=== PATIENT | female | born 1955 | race Caucasian/White ===

== ENCOUNTER 2023-01-01 11:08 | Emergency (ER) | payer MEDICARE, SELFPAY ==
--- NOTE | 2023-01-01 11:22 | ED_ITS ---
HPI - General Adult General Chief complaint: Urogenital-Female <ELLE Alcaraz - Last Filed: 01/01/23 14:03> Stated complaint: UTI? <ELLE Alcaraz - Last Filed: 01/01/23 14:03> Time Seen by Provider: 01/01/23 11:46 <ELLE Alcaraz - Last Filed: 01/01/23 14:03> Source: patient <ELLE Lebron - Last Filed: 01/01/23 13:34> Mode of arrival: ambulatory <ELLE Lebron - Last Filed: 01/01/23 13:34> Limitations: no limitations <ELLE Lebron - Last Filed: 01/01/23 13:34> History of Present Illness HPI narrative: 67-year-old female presents to the ER for evaluation of 1.5 weeks of burning upon urination, bladder pains, intermittent episodes of blood tinged urine. She states she has frequent UTIs. She developed nausea today. No vomiting or fevers. No vaginal discharge, vaginal bleeding or itching. She feels her bladder spasming and reports it is very painful. She has never seen a Urologist before. <ELLE Lebron - Last Filed: 01/01/23 13:34> MD complaint: dysuria <ELLE Lebron - Last Filed: 01/01/23 13:34> Onset (ago): week(s) (1.5-2) <ELLE Lebron - Last Filed: 01/01/23 13:34> Location: genitals <ELLE Lebron - Last Filed: 01/01/23 13:34> Radiation: non-radiation <ELLE Lebron - Last Filed: 01/01/23 13:34> Severity: severe <ELLE Lebron - Last Filed: 01/01/23 13:34> Severity scale (1-10): 8 <ELLE Lebron - Last Filed: 01/01/23 13:34> Quality: burning <ELLE Lebron - Last Filed: 01/01/23 13:34> Pain Consistency: constant <ELLE Lebron - Last Filed: 01/01/23 13:34> Relieving factors: none <ELLE Lebron - Last Filed: 01/01/23 13:34> Exacerbating factors: other (urination) <ELLE Lebron - Last Filed: 01/01/23 13:34> Associated symptoms: nausea/vomiting <ELLE Lebron - Last Filed: 01/01/23 13:34> Treatments prior to arrival: none <ELLE Lebron - Last Filed: 01/01/23 13:34> Related Data Home medications: Previous Rx's Medication Instructions Recorded levofloxacin 500 mg tablet 500 mg PO DAILY #6 tabs 01/01/23 phenazopyridine 100 mg tablet 100 mg PO TID PRN pain 6 doses #6 01/01/23 (Pyridium) tabs <ELLE Alcaraz - Last Filed: 01/01/23 14:03> Allergies/adverse reactions: Allergies Allergy/AdvReac Type Severity Reaction Status Date / Time Penicillins Allergy Anaphylaxis Verified 01/01/23 11:23 <ELLE Alcaraz - Last Filed: 01/01/23 14:03> Review of Systems Review of Systems: Yes all other systems are reviewed and are negative <ELLE Lebron - Last Filed: 01/01/23 13:34> PMF Past Medical History Medical History: Medical History (Updated 01/01/23 @ 13:25 by ELLE Lebron) ACL (anterior cruciate ligament) tear <ELLE Alcaraz - Last Filed: 01/01/23 14:03> Surgical History: Surgical History (Updated 01/01/23 @ 12:06 by Claire Terry) History of delivery <ELLE Alcaraz - Last Filed: 01/01/23 14:03> Social History Social History: Social History Alcohol intake: never Smoked in Last 30 Days: No Use of substances other than those prescribed or required for medical reasons: No Advance Directives: No Advance Directives Information Provided: Yes Patient : No <ELLE Alcaraz - Last Filed: 01/01/23 14:03> Physical Exam ED Vital Signs: Vital Signs - 24 hr 01/01/23 11:23 01/01/23 12:03 01/01/23 13:34 Temperature 97.3 F 98.6 F 98.1 F Pulse Rate 92 97 94 Respiratory Rate 18 18 18 Blood Pressure 152/105 H 145/87 H 142/88 H Pulse Oximetry 98 97 98 Oxygen Delivery Method Room Air Room Air Room Air BMI result Body Mass Index 39.8 <ELLE Alcaraz - Last Filed: 01/01/23 14:03> Vital Signs - 24 hr 01/01/23 11:23 01/01/23 12:03 01/01/23 13:34 Temperature 97.3 F 98.6 F 98.1 F Pulse Rate 92 97 94 Respiratory Rate 18 18 18 Blood Pressure 152/105 H 145/87 H 142/88 H Pulse Oximetry 98 97 98 Oxygen Delivery Method Room Air Room Air Room Air BMI result Body Mass Index 39.8 <ELLE Lebron - Last Filed: 01/01/23 13:34> Appearance: Alert. Oriented X3. No acute distress. Eyes: Pupils equal, round and reactive to light. ENT: Pharynx normal. Neck: Normal inspection. Neck supple. CVS: Normal heart rate and rhythm. Pulses normal. Respiratory: No respiratory distress. Breath sounds normal. Abdomen:Obese, Soft and nontender. +BS x4 : normal external inspection, no erythema or excoriations, no rashes. no discharge from vaginal introitus Skin: Skin warm and dry. Normal skin color. Normal skin turgor. No rashes. Extremities: No lower extremity edema. Neuro: Oriented X 3. grossly normal, nonfocal, steady gait <ELLE Lebron - Last Filed: 01/01/23 13:34> Course Course Course Narrative: RME performed by Cat Gardner PA-C. Patient is a 67 year old female presenting to the emergency department with vaginal cramping and pain with urination. Patient states that she has had scant blood when she urinates, intermittently. Patient states that she is also having bilateral feet swelling. Labs and urine ordered. Patient placed back in the waiting room pending room availability and results. <ELLE Alcaraz - Last Filed: 01/01/23 14:03> Medications Administered Discontinued Medications Generic Name Dose Route Start Last Admin Trade Name Freq PRN Reason Stop Dose Admin Levofloxacin 500 mg 01/01/23 13:06 01/01/23 13:16 Levofloxacin 500 Mg Tablet PO 01/01/23 13:07 500 mg ONCE ONE Administration Phenazopyridine HCl 100 mg 01/01/23 13:06 01/01/23 13:16 Phenazopyridine Hcl 100 Mg Tablet PO 01/01/23 13:07 100 mg ONCE ONE Administration <ELLE Alcaraz - Last Filed: 01/01/23 14:03> Medications Administered Discontinued Medications Generic Name Dose Route Start Last Admin Trade Name Rin PRN Reason Stop Dose Admin Levofloxacin 500 mg 01/01/23 13:06 01/01/23 13:16 Levofloxacin 500 Mg Tablet PO 01/01/23 13:07 500 mg ONCE ONE Administration Phenazopyridine HCl 100 mg 01/01/23 13:06 01/01/23 13:16 Phenazopyridine Hcl 100 Mg Tablet PO 01/01/23 13:07 100 mg ONCE ONE Administration <ELLE Lebron - Last Filed: 01/01/23 13:34> Medical Decision Making Medical Decision Making MDM Narrative: 67 old female with history of recurrent urinary tract infections presents to the ER for evaluation of dysuria, intermittent light hematuria and suprapubic pain for the last week and a half. Lab workup is reassuring, no leukocytosis. Her urinalysis is consistent with cystitis and infection. she is not septic. Given her recurring infections will treat with a fluoroquinolone, have her follow up with Urology. She was counseled on diagnosis and management. She is stable for discharge home. <ELLE Lebron - Last Filed: 01/01/23 13:34> Differential Diagnosis Differential Diagnoses: The differential diagnosis associated with the presentation includes <ELLE Lebron Last Filed: 01/01/23 13:34> UTI, pyelonephritis, vaginal yeast infection, gross hematuria, bladder mass/ cancer, vaginitis <ELLE Lebrno Last Filed: 01/01/23 13:34> Lab Data [facility] Lab Attestation statement: I reviewed the patient's lab results. <ELLE Lebron Last Filed: 01/01/23 13:34> no leukocytosis, UA consistent with infection <ELLE Lebron Last Filed: 01/01/23 13:34> Result Diagrams: 01/01/23 12:21 01/01/23 12:21 <ELLE Alcaraz - Last Filed: 01/01/23 14:03> Labs: Lab Results 01/01/23 01/01/23 01/01/23 Range/Units 12:21 12:21 12:31 WBC 7.9 (4.8-10.8) X10*3/uL RBC 4.17 L (4.20-5.50) X10*6/uL Hgb 12.9 (12.0-16.0) g/dl Hct 39.9 (37.0-47.0) % MCV 95.7 (80.0-98.0) fL MCH 30.9 (27.0-33.0) pg MCHC 32.3 (31.0-35.0) g/dl RDW 12.3 (11.0-16.0) % Plt Count 308 (160-400) X10*3/uL MPV 9.8 (9.4-12.3) fL Immature Gran % (Auto) 0.1 (0.0-0.4) % Neut % (Auto) 70.7 (45-73) % Lymph % (Auto) 21.2 (20-40) % Ware % (Auto) 5.0 (2-11) % Eos % (Auto) 2.5 (0-4) % Baso % (Auto) 0.5 (0-2) % Lymph # (Auto) 1.7 (1.2-4.9) X10*3/uL Ware # (Auto) 0.4 (0.1-1.2) X10*3/uL Eos # (Auto) 0.2 (0.0-0.4) X10*3/uL Baso # (Auto) 0.0 (0.0-0.2) X10*3/uL Abs Immat Gran (auto) 0.01 (0.00-0.03) X10*3/uL Absolute Neuts (auto) 5.6 (2.0-8.3) x10*3/uL Absolute Nucleated RBC 0.000 (0.0-0.012) X10*3/uL Nucleated RBC % (auto) 0.0 (0.0-0.2) /100WBC Sodium 141 (135-145) mmol/L Potassium 4.3 (3.3-5.1) mmol/L Chloride 109 H (96-108) mmol/L Carbon Dioxide 24 (22-29) mmol/L Anion Gap 12 (12-20) BUN 11 (9-16) mg/dL Creatinine 0.77 (0.5-1.4) mg/dL Estim Creat Clear Calc 80.8 Estimated GFR > 60 Random Glucose 98 (60-115) mg/dL Calcium 9.1 (8.4-10.2) mg/dL Magnesium 2.0 (1.6-2.6) mg/dL Total Bilirubin 0.4 (0.0-1.0) mg/dL AST 61 H (5-31) U/L ALT 44 H (0-31) U/L Alkaline Phosphatase 87 (39-117) U/L Total Protein 6.6 (6.5-8.0) g/dL Albumin 3.9 (3.5-5.0) g/dL Urine Color Dark Yellow Urine Appearance Turbid Urine pH 5.5 (5.0-9.0) Ur Specific [place] >= 1.030 H (1.005-1.025) Urine Protein 300 (3+) H (Neg-Trace) mg/dL Urine Glucose (UA) Negative (Negative) mg/dL Urine Ketones Trace (Negative) mg/dL Urine Blood Large (3+) H (Negative) Urine Nitrite Negative (Negative) Ur Leukocyte Esterase Large (3+) H (Negative) Urine RBC >20 H (0-2) /HPF Urine WBC >50 H (0-5) /HPF Ur Squamous Epith Cells 3-5 (0-2) /HPF Urine Bacteria 2+ (None Seen) Hyaline Casts 3-5 (0-2) /LPF <ELLE Alcaraz - Last Filed: 01/01/23 14:03> Lab Results 01/01/23 01/01/23 01/01/23 Range/Units 12:21 12:21 12:31 WBC 7.9 (4.8-10.8) X10*3/uL RBC 4.17 L (4.20-5.50) X10*6/uL Hgb 12.9 (12.0-16.0) g/dl Hct 39.9 (37.0-47.0) % MCV 95.7 (80.0-98.0) fL MCH 30.9 (27.0-33.0) pg MCHC 32.3 (31.0-35.0) g/dl RDW 12.3 (11.0-16.0) % Plt Count 308 (160-400) X10*3/uL MPV 9.8 (9.4-12.3) fL Immature Gran % (Auto) 0.1 (0.0-0.4) % Neut % (Auto) 70.7 (45-73) % Lymph % (Auto) 21.2 (20-40) % Ware % (Auto) 5.0 (2-11) % Eos % (Auto) 2.5 (0-4) % Baso % (Auto) 0.5 (0-2) % Lymph # (Auto) 1.7 (1.2-4.9) X10*3/uL Ware # (Auto) 0.4 (0.1-1.2) X10*3/uL Eos # (Auto) 0.2 (0.0-0.4) X10*3/uL Baso # (Auto) 0.0 (0.0-0.2) X10*3/uL Abs Immat Gran (auto) 0.01 (0.00-0.03) X10*3/uL Absolute Neuts (auto) 5.6 (2.0-8.3) x10*3/uL Absolute Nucleated RBC 0.000 (0.0-0.012) X10*3/uL Nucleated RBC % (auto) 0.0 (0.0-0.2) /100WBC Sodium 141 (135-145) mmol/L Potassium 4.3 (3.3-5.1) mmol/L Chloride 109 H (96-108) mmol/L Carbon Dioxide 24 (22-29) mmol/L Anion Gap 12 (12-20) BUN 11 (9-16) mg/dL Creatinine 0.77 (0.5-1.4) mg/dL Estim Creat Clear Calc 80.8 Estimated GFR > 60 Random Glucose 98 (60-115) mg/dL Calcium 9.1 (8.4-10.2) mg/dL Magnesium 2.0 (1.6-2.6) mg/dL Total Bilirubin 0.4 (0.0-1.0) mg/dL AST 61 H (5-31) U/L ALT 44 H (0-31) U/L Alkaline Phosphatase 87 (39-117) U/L Total Protein 6.6 (6.5-8.0) g/dL Albumin 3.9 (3.5-5.0) g/dL Urine Color Dark Yellow Urine Appearance Turbid Urine pH 5.5 (5.0-9.0) Ur Specific [place] >= 1.030 H (1.005-1.025) Urine Protein 300 (3+) H (Neg-Trace) mg/dL Urine Glucose (UA) Negative (Negative) mg/dL Urine Ketones Trace (Negative) mg/dL Urine Blood Large (3+) H (Negative) Urine Nitrite Negative (Negative) Ur Leukocyte Esterase Large (3+) H (Negative) Urine RBC >20 H (0-2) /HPF Urine WBC >50 H (0-5) /HPF Ur Squamous Epith Cells 3-5 (0-2) /HPF Urine Bacteria 2+ (None Seen) Hyaline Casts 3-5 (0-2) /LPF <ELLE Lebron - Last Filed: 01/01/23 13:34> Tests considered The following testing was considered but not selected: CT scan considered hematuria, however this is microscopic and no gross hematuria. <ELLE Lebron - Last Filed: 01/01/23 13:34> Prescription Management I considered prescription management with: Antibiotic <ELLE Lebron Last Filed: 01/01/23 13:34> Chronic Conditions Patient?s care impacted by: Other (recurrent UTI's, obesity) <ELLE Lebron Last Filed: 01/01/23 13:34> Critical Care Time Critical Care Time Critical Care Time: No <ELLE Lebron Last Filed: 01/01/23 13:34> Discharge Plan Discharge Clinical Impression: Urinary tract infection <ELLE Alcaraz Last Filed: 01/01/23 14:03> Patient Disposition: Home, Self-Care <ELLE Alcaraz Last Filed: 01/01/23 14:03> Instructions: Urinary Tract Infection in Women (ED) <ELLE Alcaraz Last Filed: 01/01/23 14:03> Additional Instructions: Your urine test today showed infection. Take the prescribed antibiotic as directed, complete the entire course. Start them tomorrow around lunch time. Your given 1st dose today in the emergency department. Drink plenty of water and stay hydrated. Recommend following up with Urology given your recurrent urinary tract infections. Also follow up with your primary care doctor <ELLE Alcaraz - Last Filed: 01/01/23 14:03> Prescriptions: New levofloxacin 500 mg tablet 500 mg PO DAILY Qty: 6 0RF phenazopyridine [Pyridium] 100 mg tablet 100 mg PO TID PRN (Reason: pain) Qty: 6 0RF <ELLE Alcaraz - Last Filed: 01/01/23 14:03> Referrals: [facility] [place] Group] ( recurrent UTIs) <ELLE Alcaraz - Last Filed: 01/01/23 14:03> Interventions: ED Discharge Assessment Last Done: 01/01/23 13:34 <ELLE Alcaraz - Last Filed: 01/01/23 14:03> Discharge Date/Time: 01/01/23 13:35 <ELLE Alcaraz - Last Filed: 01/01/23 14:03>
[2023-01-01 11:23] VITALS: BP 152/105; PULSE 92; RESP 18; TEMP 36.3; O2SAT 98; BMI 39.8
[2023-01-01 12:03] VITALS: BP 145/87; PULSE 97; RESP 18; TEMP 37; O2SAT 97
--- NOTE | 2023-01-01 12:08 | PC.NURSE ---
pt AOx3, reports sharp spasaming vaginal pain and small amount of blood with urination. VSS. pt resting, awaiting ED Provider. will continue to monitor.
[2023-01-01 12:30] LABS: MANUAL DIFF FLAG NO
[2023-01-01 12:31] LABS: Basophils Percent Auto 0.5 % (0-2); Eosinophils Absolute Auto 0.2 X10*3/uL (0.0-0.4); Eosinophils Percent Auto 2.5 % (0-4); Hematocrit 39.9 % (37.0-47.0); Hemoglobin 12.9 g/dl (12.0-16.0); Imm Gran Abs Auto 0.01 X10*3/uL (0.00-0.03); Imm Gran Pct Auto 0.1 % (0.0-0.4); Lymphocytes Absolute Auto 1.7 X10*3/uL (1.2-4.9); Lymphocytes Percent Auto 21.2 % (20-40); Mean Corpuscular HGB Conc 32.3 g/dl (31.0-35.0); Mean Corpuscular Hemoglobin 30.9 pg (27.0-33.0); Mean Corpuscular Volume 95.7 fL (80.0-98.0); Mean Platelet Volume 9.8 fL (9.4-12.3); Monocytes Absolute Auto 0.4 X10*3/uL (0.1-1.2); Neutrophils Absolute Auto 5.6 x10*3/uL (2.0-8.3); Neutrophils Percent Auto 70.7 % (45-73); Platelet Count 308 X10*3/uL (160-400); Red Blood Count 4.17 X10*6/uL (4.20-5.50); Red Cell Distribution Width 12.3 % (11.0-16.0); White Blood Count 7.9 X10*3/uL (4.8-10.8)
[2023-01-01 12:47] LABS: Appearance Urine Turbid; Color Urine Dark Yellow; Glucose Urine UA Negative (Negative); Leukocyte Esterase Urine Large (3+) (Negative); Nitrite Urine Negative (Negative); PH 5.5 (5.0-9.0); Specific Gravity - Urine >= 1.030 (1.005-1.025); UMIC TRIGGER UACC YES; Urine Blood Large (3+) (Negative); Urine Ketones Trace mg/dL (Negative); Urine Protein 300 (3+) mg/dL (Neg-Trace)
[2023-01-01 12:55] LABS: Alanine Aminotransferase 44 U/L (0-31); Albumin Level 3.9 g/dL (3.5-5.0); Alkaline Phosphatase 87 U/L (39-117); Anion Gap 12 (12-20); Aspartate Amino Transferase 61 U/L (5-31); Bilirubin Total 0.4 mg/dL (0.0-1.0); Blood Urea Nitrogen 11 mg/dL (9-16); Calcium 9.1 mg/dL (8.4-10.2); Carbon Dioxide 24 mmol/L (22-29); Chloride 109 mmol/L (96-108); Creatinine Clr Calc Pharmacy 80.8; Estimated Glomerular Filt Rate > 60; Glucose Random 98 mg/dL (60-115); Potassium 4.3 mmol/L (3.3-5.1); Sodium 141 mmol/L (135-145); Total Protein 6.6 g/dL (6.5-8.0)
[2023-01-01 13:00] LABS: Bacteria Urine 2+ (None Seen); RBC Urine >20 /HPF (0-2); UACC Culture Trigger YES; WBC Urine >50 /HPF (0-5)
[2023-01-01] MEDS: levoFLOXacin 500 MG TABLET PO (13:16)
[2023-01-01] MEDS: Phenazopyridine HCL 100 MG TABLET PO (13:16)
--- NOTE | 2023-01-01 13:17 | PC.NURSE ---
medications daycare teacher per order
[2023-01-01 13:34] VITALS: BP 142/88; PULSE 94; RESP 18; TEMP 36.7; O2SAT 98
== END 2023-01-01 13:35 | disposition home or self-care (01) ==
PROVIDERS: Physician Assistant Medical; Emergency Provider Emergency Medicine
DX: N39.0 Urinary tract infection, site not specified (principal); B96.20 Unspecified Escherichia coli [E. coli] as the cause of diseases classified elsewhere
CPT/HCPCS: 36415; 80053; 81001; 83735; 85025; 87086; 87088; 87186; 99283; 99284